=== PATIENT | female | born 1965 | race Caucasian/White ===

== ENCOUNTER 2019-08-14 12:32 | Emergency (ER) | payer OTHER ==
[~2019-08-14] VITALS: Ht 154.9 cm; Wt 101.2 kg
[2019-08-14 12:37] VITALS: Ht 154.9 cm; Wt 101.2 kg
[2019-08-14 14:01] VITALS: BP 154/58
== END 2019-08-14 14:01 | disposition home or self-care (01) ==
LOC: ED 12:32
DX: M25.512 Pain in left shoulder (principal); M25.551 Pain in right hip; M54.9 Dorsalgia, unspecified; E78.5 Hyperlipidemia, unspecified; Z91.040 Latex allergy status; V43.52XA Car driver injured in collision with other type car in traffic accident, initial encounter; Y93.I9 Activity, other involving external motion; Y92.488 Other paved roadways as the place of occurrence of the external cause; Y99.8 Other external cause status
CPT/HCPCS: J1885